=== PATIENT | female | born 1990 ===

== ENCOUNTER 2020-01-02 13:49 | Outpatient (REF) | payer OTHER, SELFPAY ==
[2020-01-02 14:35] LABS: HCG Quant, Pregnancy 304 mIU/mL (1-3)
== END 2020-01-02 14:09 ==
LOC: LBN 13:49
PROVIDERS: Visit Provider Advanced Practice Midwife
DX: N92.5 Other specified irregular menstruation (principal)
CPT/HCPCS: 84702

== ENCOUNTER 2020-02-08 10:29 | Outpatient (REF) | payer OTHER, SELFPAY ==
[2020-02-11 14:43] LABS: SARS-CoV-2 RNA Undetected (Undetected); SARS-CoV-2 Specimen Source Nasal
== END 2020-02-08 10:49 ==
LOC: NCHCN 10:29
PROVIDERS: Visit Provider Nurse Practitioner Family
DX: Z11.59 Encounter for screening for other viral diseases (principal)
CPT/HCPCS: U0003

== ENCOUNTER 2020-02-22 19:13 | Outpatient (REF) | payer SELFPAY ==
[2020-02-23 11:35] LABS: Measles IgG Antibody Positive (See Note); Mumps Antibody IgG Positive (See Note); Varicella IgG Antibody Negative (See Note)
[2020-02-23 11:37] LABS: Rubella IgG Ab (UVM) Negative (See Note)
== END 2020-02-22 19:33 ==
LOC: LBO 19:13
PROVIDERS: Visit Provider Nurse Practitioner Family
DX: Z02.1 Encounter for pre-employment examination (principal)
CPT/HCPCS: 36415; 86787; 86735; 86762; 86765